=== PATIENT | female | born 1970 | race Caucasian/White ===

== ENCOUNTER 2016-10-01 18:03 | Emergency (ER) | payer BC ==
[~2016-10-01] VITALS: Ht 180.3 cm; Wt 118.0 kg
[2016-10-01 18:10] VITALS: BP 152/107; PULSE 77; RESP 16; TEMP 97.9; O2SAT 100
[2016-10-01] MEDS ORDERED: HYDR25TA5 PO (18:18)
--- NOTE | 2016-10-01 18:18 | PD ---
HPI Chief Complaint: Laceration/Skin Injury Time Seen by Provider: 18:18 Travel History International Travel<30 days: No Contact w/Intl Traveler<30days: No Traveled to known affect area: No History of Present Illness HPI 46-year-old female brought into the emergency department with worsening tender losing growth on the right base of the thumbnail over the past 10 days. Patient states she was playing with her dog 10 days ago when the dog bit her nail and a puncture wound was created. Since that time she's had increasing painful growth from the hole that was in the nail. Patient denies fever chills or pus drainage. She has no red streaking or erythema. Patient states when she gets it tends to bleed easily, and is very painful. She has tried treating it with ointment and hydrocortisone without improvement. She has no known drug allergies. PFSH Past Medical History ?: Not LMP: 2 WEEKS AGO Social History Alcohol Use: No Tobacco Use: No Substance Use: No Allergies-Medications (Allergen,Severity, Reaction): Coded Allergies: No Known Allergies (Unverified , 10/01/16) Reported Meds & Prescriptions Reported Meds & Active Scripts Active Tramadol (Tramadol HCl) 50 Mg Tab 50 Mg PO Q6H PRN Reported Hydrochlorothiazide 25 Mg Tab 25 Mg PO DAILY Review of Systems Except as stated in HPI: all other systems reviewed are Neg General / Constitutional: No: Fever Eyes: No: Visual changes HENT: No: Headaches Cardiovascular: No: Chest Pain or Discomfort Respiratory: No: Shortness of Breath Gastrointestinal: No: Abdominal Pain Genitourinary: No: Dysuria Musculoskeletal: No: Pain Skin: No Rash Neurologic: No: Weakness Psychiatric: No: Depression Endocrine: No: Polydipsia Hematologic/Lymphatic: No: Easy Bruising Physical Exam Narrative GENERAL: Patient is in no acute distress. SKIN: Warm and dry. Normal color. Normal turgor. Patient has a 5 cm fleshy soft and moist grossly the base of the right thumbnail consistent with a pyogenic granuloma. Significant erythema or signs of infection or abscess. HEAD: Atraumatic. Normocephalic. EYES: Pupils equal and round. No scleral icterus. No injection or drainage. ENT: No nasal bleeding or discharge. Mucous membranes pink and moist. NECK: Trachea midline. No JVD. CARDIOVASCULAR: Regular rate and rhythm. RESPIRATORY: No accessory muscle use. Clear to auscultation. Breath sounds equal bilaterally. MUSCULOSKELETAL: Extremities without clubbing, cyanosis, or edema. No obvious deformities. NEUROLOGICAL: Awake and alert. No obvious cranial nerve deficits. Motor grossly within normal limits. Five out of 5 muscle strength in the arms and legs. Normal speech. PSYCHIATRIC: Appropriate mood and affect; insight and judgment normal. Data Data Last Documented VS Vital Signs Date Time Temp Pulse Resp B/P Pulse Ox O2 Delivery O2 Flow Rate FiO2 10/01/16 18:10 97.9 77 16 152/107 100 Orders Lidocai-Epi 1%-1:100,000 Inj (Xylocaine- (10/01/16 18:30) MDM Medical Decision Making Medical Screen Exam Complete: Yes Emergency Medical Condition: Yes Differential Diagnosis Pyogenic granuloma. Puncture wound. Cellulitis. Narrative Course Patient is felt to have a pyogenic granuloma. I explained to the patient is to be very difficult to get rid of but she opts for treatment here in the ED. Digital block is placed in the right thumb with good anesthetic effect. Granuloma was cauterized with electrical cautery and Xeroform gauze placed over the area. Bulky dressing was then placed over this. Patient is to take ibuprofen and Tylenol as needed for pain Patient can ice the area. Dressing should remain in place for the next 4-5 days if possible. Patient is to keep the dressing clean and dry. Patient is given tramadol 5 mg every 6 hours when necessary pain #10 to take as needed. If granuloma recurs the patient is advised to seek out treatment with a hand surgeon. Patient was referred to Dr. Jose if symptoms recur. Diagnosis Primary Impression: Pyogenic granuloma of skin Patient Instructions: General Instructions Additional Instructions: I explained to the patient is to be very difficult to get rid of but she opts for treatment here in the ED. Digital block is placed in the right thumb with good anesthetic effect. Granuloma was cauterized with electrical cautery and Xeroform gauze placed over the area. Bulky dressing was then placed over this. Patient is to take ibuprofen and Tylenol as needed for pain Patient can ice the area. Dressing should remain in place for the next 4-5 days if possible. Patient is to keep the dressing clean and dry. Patient is given tramadol 5 mg every 6 hours when necessary pain #10 to take as needed. If granuloma recurs the patient is advised to seek out treatment with a hand surgeon. Patient was referred to Dr. Jose if symptoms recur. Med/Other Pt SpecificInfo: Prescription(s) given Scripts Tramadol 50 Mg Tab50 Mg PO Q6H PRN (PAIN) #10 TAB Prov:Zahida Ocoha MD 10/01/16 Disposition: 01 DISCHARGE HOME Condition: Stable Sarthak Jordan Oct 01, 2016 18:18
[2016-10-01] MEDS ORDERED: LIDOCAINE 1%/EPINEPHrine 1:100,000 SOLN 20 ML VIAL INFIL ONE (18:30)
[2016-10-01] MEDS ORDERED: TRAM50TA PO (19:15)
== END 2016-10-01 19:29 | disposition home or self-care (01) ==
LOC: PHEFT 18:03
DX: M60.28 Foreign body granuloma of soft tissue, not elsewhere classified, other site (principal); W54.0XXA Bitten by dog, initial encounter; Y93.9 Activity, unspecified; Y92.9 Unspecified place or not applicable; Y99.9 Unspecified external cause status
CPT/HCPCS: 12002

== ENCOUNTER 2017-04-14 17:14 | Emergency (ER) | payer BC ==
[~2017-04-14] VITALS: Ht 180.3 cm; Wt 131.0 kg
[~2017-04-14 17:14] MED LIST: HYDR25TA5 PO; TRAM50TA PO
[2017-04-14 17:57] VITALS: BP 189/113; PULSE 104; RESP 16; TEMP 98.2; O2SAT 96
--- NOTE | 2017-04-14 19:11 | RADRPT ---
EXAM DATE/TIME: 04/14/2017 18:48 [facility] COMPARISON: No previous studies available for comparison. INDICATIONS : Left foot pain. MEDICAL HISTORY : None. SURGICAL HISTORY : None. ENCOUNTER: Initial ACUITY: 1 day PAIN SCORE: 8/10 LOCATION: Left foot. FINDINGS: There is an old united fracture involving the base of the left 5th metatarsal. No acute fracture or dislocation is noted. Plantar calcaneal spur is noted. CONCLUSION: 1. Old united fracture involving the base of the left 5th metatarsal. 2. No acute fracture or dislocation. 3. Plantar calcaneal spur. Fede Puga MD on April 14, 2017 at 19:02 Board Certified Radiologist. This report was verified electronically.
--- NOTE | 2017-04-14 20:47 | PD ---
HPI Chief Complaint: Injury Time Seen by Provider: 20:38 Travel History International Travel<30 days: No Contact w/Intl Traveler<30days: No Traveled to known affect area: No History of Present Illness HPI Patient is complaining of left foot pain that began shortly prior to arrival. Patient states she was helping move debris when she accidentally slammed left side of her foot on unknown object. Patient having throbbing aching pain over the site since without radiation. Pain is worse with walking. Patient placed ice prior coming to emergency department with some relief. Patient denies hitting her head or loss consciousness. Denies any numbness or tingling. PFSH Past Medical History Diminished Hearing: No Hypertension: Yes Immunizations Current: Yes Tubal Ligation: Yes Social History Alcohol Use: No Tobacco Use: No Substance Use: No Allergies-Medications (Allergen,Severity, Reaction): Coded Allergies: No Known Allergies (Unverified , 04/14/17) Reported Meds & Prescriptions Reported Meds & Active Scripts Active Tramadol (Tramadol HCl) 50 Mg Tab 50 Mg PO Q6H PRN Reported Hydrochlorothiazide 25 Mg Tab 25 Mg PO DAILY Review of Systems Except as stated in HPI: all other systems reviewed are Neg Physical Exam Narrative GENERAL: Well-developed, overly nourished, in no acute distress, and non-ill appearing. SKIN: Focused skin assessment warm and dry. Contusion noted over the lateral dorsal aspect of left foot. Patient reports tenderness over area. There is no crepitus. HEAD: Atraumatic. Normocephalic. EYES: Pupils equal and round. EOMI. No scleral icterus. No injection or drainage. ENT: No nasal bleeding or discharge. Mucous membranes pink and moist. NECK: Trachea midline. Supple. No nuclear rigidity. CARDIOVASCULAR: Pulses 2+, intact, and equal bilaterally. Capillary refill less than 2 seconds. RESPIRATORY: No accessory muscle use. No respiratory distress. MUSCULOSKELETAL: No obvious deformities. No clubbing. No cyanosis. No edema. Full range of motion. Ankle: Neagative anterior draw and Mars test. Negative David's sign. No laxity noted with passive inversion and eversion of BL ankles. Negative squeeze test. Pulses equal BL distal to injury. Capillary refill less than 2 seconds distal to injury and equal BL. Sensation equal BL 1st web space. FROM of toes distal to injury and equal BL. NV intact distal to injury and equal BL. Dorsal pulses equal BL. NEUROLOGICAL: Awake and alert. No obvious cranial nerve deficits. Motor grossly within normal limits. Normal speech. PSYCHIATRIC: Appropriate mood and affect; insight and judgment normal. Data Data Last Documented VS Vital Signs Date Time Temp Pulse Resp B/P (MAP) Pulse Ox O2 Delivery O2 Flow Rate FiO2 04/14/17 17:57 98.2 104 16 189/113 (138) 96 Orders Orders Foot, Complete ([id number]) (04/14/17 ) [facility] Medical Decision Making Medical Screen Exam Complete: Yes Emergency Medical Condition: Yes Interpretation(s) Left foot x-ray read by the radiologist shows: 1. Old united fracture involving the base of the left 5th metatarsal. 2. No acute fracture or dislocation. 3. Plantar calcaneal spur. Differential Diagnosis Fracture, sprain, contusion, other Narrative Course The patient appears to have suffered a contusion of the extremity. There is no clinical evidence to suspect bony injury by exam. Radiographic examination revealed no fracture seen at this time. The patient has full range of motion on active and passive motions. There is no significant edema. There is no proximal or distal joint effusion. The distal extremity appears neurovascularly intact, without evidence of neurovascular injury nor compartment syndrome. Tendon exam also was intact. The patient was discharged and given warnings for vascular compromise. The patient is to follow up with their regular physician or corporate events director. The patient agrees with plan. Patient in no obvious distress upon re-evaluation. All pertinent Radiology result(s) discussed with patient/family. Any questions/concerns in reference to patient diagnosis/condition discussed and clarified prior to patient's discharge. Reinforced sheer importance of close follow up with patient's primary physician or primary care clinic and/or corporate events director. Instructed patient to return to ED immediately, if symptoms return/worsen. Pt showed understanding of above instructions. Further instructions and recommendations were detailed in discharge paperwork. Pt ambulated without difficulty out of ED at discharge. Diagnosis Primary Impression: Contusion of left foot, initial encounter Patient Instructions: Contusion in Adults (ED), General Instructions Additional Instructions: Follow-up with your primary care physician and/or corporate events director this week for reevaluation. Use [id number] Tylenol and/or ibuprofen as needed for pain. Follow instructions on the packaging. Apply ice to affected area 20 minutes per hour as needed for pain. Return to the emergency department if symptoms get worse. Disposition: 01 DISCHARGE HOME Condition: Stable Karthikeyan Schmidt Apr 14, 2017 20:47
== END 2017-04-14 21:31 | disposition home or self-care (01) ==
LOC: PHED 17:14
DX: S90.32XA Contusion of left foot, initial encounter (principal); W22.8XXA Striking against or struck by other objects, initial encounter; I10 Essential (primary) hypertension
CPT/HCPCS: 73630; 99283